=== PATIENT | female | born 1955 | race Caucasian/White ===

== ENCOUNTER 2024-09-24 02:58 | Outpatient (CLI) | payer MEDICARE, MEDICAID, SELFPAY ==
--- NOTE | 2024-09-24 07:00 | DI.MRI_ITS ---
Exam(s) MR LUMBAR SPINE WO EXAM: MR LUMBAR SPINE WO CLINICAL HISTORY: pain and previous MRI showing edema in L3,LUMBAR SPONDYLOSIS,POST LAMINECTO. TECHNIQUE: Multiplanar multisequence MRI of the Lumbar spine was performed. COMPARISON: MR MR LS SPINE WO CONTRAST from 01/04/2024 MR MR LS SPINE WO CONTRAST from 05/25/2024 FINDINGS: Bones: The last intervertebral disc space is designated the L5/S1 level for the numbering purpose of this examination. The vertebral body heights are well maintained. Alignment is satisfactory. There are endplate degenerative signal changes at multiple levels in the lumbar spine. Endplate osteophyte s are seen throughout the lumbar spine. There is again seen mild edema in the right aspect of the ba se of the L2 vertebral body. This is unchanged. There is no abnormal signal seen in the L3 vertebra l body. Cord: The conus tip is within normal limits for location. It is of normal size and signal intensity. T12-L1: No disc herniations or bulges are present. No central spinal canal or neural foraminal stenos is. L1-2: No disc herniations or bulges are present. No central spinal canal or neural foraminal stenosis . L2-3: There is a mild diffuse disc bulge and mild degenerative changes of the facets. No central spi nal canal or neural foraminal stenosis. L3-4: There is a diffuse disc bulge. There are degenerative changes of the facets. There is mild na rrowing of the central spinal canal. Mild bilateral neural foraminal narrowing is present. L4-5: No disc herniations or bulges are present. Mild degenerative changes of the facets are seen. T here is a mild diffuse disc bulge. No significant central spinal canal stenosis is seen. There is a L4 left laminectomy.There is mild bilateral neural foraminal narrowing. L5-S1: No disc herniations or bulges are present. No central spinal canal or neural foraminal stenosi s. Soft tissues: The visualized SI joints and sacrum are well maintained. There is mild fatty atrophy of the paraspinal and gluteal muscles. IMPRESSION: 1. There is no marrow edema seen in L3. 2. Multilevel degenerative changes in the lumbar spine. The findings are most marked at the L3-4 lev el, where there is both central spinal canal and neural foraminal stenosis. 3. Postsurgical changes seen in the lumbar spine. DATA REPOSITORY:
== END 2024-09-24 03:18 ==
PROVIDERS: PCP Internal Medicine; Visit Provider Anesthesiology Pain Medicine
DX: M47.816 Spondylosis without myelopathy or radiculopathy, lumbar region (principal); M96.1 Postlaminectomy syndrome, not elsewhere classified
CPT/HCPCS: 27096; 72200; 72148; J0665; J1010; Q9967

== ENCOUNTER 2024-09-24 11:35 | Outpatient (CLI) | payer MEDICARE, MEDICAID, SELFPAY ==
--- NOTE | 2024-09-24 11:30 | DI.RAD_ITS ---
Exam(s) XR PAIN CLINIC SACRIOILIAC 2V EXAM: XR PAIN CLINIC SACRIOILIAC 2V CLINICAL HISTORY: Dx: Sacroiliac Joint Dysfunction TECHNIQUE: 2D and realtime digital imaging was performed. CONTRAST MATERIAL: Refer to procedure report. COMPARISON: No exams were available for comparison FINDINGS: Fluoroscopy was provided for Dr. Flores during the performance of a right sacroiliac joint injectio n. Please refer to the procedure report for complete details. Ka,r=17.0 mGy IMPRESSION: RADIATION DOSE DELIVERED: 0.0 0.0 0
[2024-09-24 11:37] VITALS: BP 167/66; PULSE 68; RESP 20; TEMP 36.6; O2SAT 98
[2024-09-24 12:05] VITALS: PULSE 75; O2SAT 99
[2024-09-24 12:10] VITALS: PULSE 72; O2SAT 98
--- NOTE | 2024-09-24 12:16 | PDOC.PAIN_ITS ---
Date of service: 09/24/24 Time of Service: 12:18 Pain Managment Procedure Note Procedure Note Procedure Note: ?Sacroiliac Joint Steroid Injection ? Location: ? Right SI Joint? Pre-procedure Diagnosis: Sacroiliitis, not elsewhere classified - M46.1 ? Post-procedure Diagnosis:? The same as above ? Sedation:? NONE ? Medication: Depo-Medrol 40 mg, bupivacaine 0.5% 1 mL, Omnipaque 0.25 mL per joint ? Estimated blood loss:? less than 2 cc ? Surgeon:? Dru Flores MD ? COMMENT: THIS WILL BE BOTH DIAGNOSTIC AND THERAPEUTIC ? Procedure Detail:? The procedure and potential risks were explained to the patient and informed written consent was obtained. The patient was escorted to the procedure room and placed in the prone position. Pillows were utilized for proper positioning and comfort. Time out was performed in the procedure room with nursing staff confirming the patient's identity, procedure to be performed, allergies, and any blood thinning or anti-platelet medications. The patient's lumbosacral area was prepped with ChloraPrep and draped in a sterile fashion. Sterile technique was maintained throughout the procedure.? Sterile gloves were used, a face mask was worn, and new single dose vials of all medications were used with the top being swabbed with alcohol and given time to dry prior to withdrawal of medication. Lidocaine 1% was used to anesthetize the skin. With fluoroscopic guidance, a 22-gauge 5 spinal needle was advanced into the posteroinferior aspect of the Right SI joint . Confirmation of intra-articular position of the needle tip was obtained with i njection of 0.25cc of Omnipaque 240 contrast which showed appropriate spread within the joint.? Following negative aspiration, 40mg of methylprednisolone mixed with 1 mL of bupivacaine 0.5% was injected.? The needle was gently removed. ?The patient tolerated the procedure well and was transported to the recovery area for observation and discharge instructions.? Permanent images saved and recorded. Plan:? Follow up prn. PAIN PRE PROCEDURE 04/26 POST PROCEDURE 09/24 COMMENT: 80 % BETTER AFTER INJECTION. Patient can repeat as needed or consider right L5 transforaminal steroid injection if still having pain that radiates down her leg to her foot. Coding Conscious Sedation used for procedure: No CPT Codes: SI Joint Inj; incl Fluoro - 43148 ([id number] ~G) Additional Codes: Date of Service (72000) Date of service: 09/24/24
[2024-09-24] MEDS: Omnipaque 240 MG/ML 50 ML BTL IJ (12:18)
[2024-09-24] MEDS: Bupivacaine 0.5% Pres-Free 10 ML VIAL IJ (12:19)
[2024-09-24] MEDS: methylPREDNISolone ACETATE 80 MG/ML VIAL IJ (12:19)
[2024-09-24] MEDS: Nerve Block Tray 1 EACH MC (12:19)
== END 2024-09-24 11:36 | disposition home or self-care (01) ==
LOC: PC 11:36
PROVIDERS: PCP Internal Medicine; Visit Provider Anesthesiology Pain Medicine
DX: M46.1 Sacroiliitis, not elsewhere classified (principal); M54.50 Low back pain, unspecified
CPT/HCPCS: 27096; 72200; J0665; J1010; Q9967

== ENCOUNTER 2024-11-06 09:18 | Outpatient (CLI) | payer MEDICARE, MEDICAID, SELFPAY ==
--- NOTE | 2024-11-06 06:00 | DI.RAD_ITS ---
Exam(s) XR PAIN CLINIC LUMBAR SP 2V EXAM: XR PAIN CLINIC LUMBAR SP 2V CLINICAL HISTORY: DX: Lumbar Radiculopathy TECHNIQUE: 2D and realtime digital imaging was performed. CONTRAST MATERIAL: Refer to procedure report. COMPARISON: No exams were available for comparison FINDINGS: Fluoroscopy was provided for Dr. Flores during the performance of a lumbar transforaminal epidural steroid injection. Please refer to the procedure report for complete details. Ka,r=16.9 mGy IMPRESSION: RADIATION DOSE DELIVERED: 0.0 0.0 0
--- NOTE | 2024-11-06 09:11 | PDOC.PAIN_ITS ---
Date of service: 11/06/24 Time of Service: 10:08 Pain Managment Procedure Note Procedure Note Procedure Note: Lumbar Transforaminal Epidural Steroid Injection ? Location: RIGHT BILATERAL L5-S1 ? Pre-procedure Diagnosis: M54.17-Radiculopathy, lumbosacral region M54.16 Radiculopathy, lumbar region ? Post-procedure Diagnosis:? The same as above ? Sedation:? none ? Estimated blood loss:? less than 2 cc ? Surgeon:? Dru Flores MD COMMENT: Patient has right lateral L5-S1 disc protrusion in the foramen with radicular symptoms. ? Procedure Detail:?? The procedure and potential risks were explained to the patient and informed written consent was obtained. The patient was escorted to the procedure room and placed in the prone position. Pillows were utilized for proper positioning and comfort. Time out was performed in the procedure room with nursing staff confirming the patient's identity, procedure to be performed, allergies, and any blood thinning or anti-platelet medications. The patient's lo wer back was prepped with ChloraPrep and draped in a sterile fashion. Sterile gloves were used, a face mask was worn, and new single dose vials of all medications were used with the top being swabbed with alcohol and given time to dry prior to withdrawal of medication. A right-sided oblique fluoroscopic view was obtained, with visualization of L5-S1. Lidocaine 1% was used to anesthetize the skin. The tip of a 22-gauge, Quincke needle was advanced toward the 6 o'clock position of the superior pedicle at the target level.? It was advanced just under the pedicle to the neural foramen L5-S1. Correct needle placement was confirmed through review of the fluoroscopy. Next, following negative aspiration, 1cc's of Omnipaque 240 contrast was injected under live fluoroscopy which showed good flow throughout the epidural space and no evidence of vascular flow or flow into adjacent compartments. Next, following negative aspiration, 40mg Depo-Medrol and 0.5ml of 0.5% bupivacaine was injected. The needle was gently removed.? ? The patient tolerated the procedure well.? Permanent images saved and recorded. Plan:? Follow up prn PAIN: PRE PROCEDURE 04/26 POST PROCEDURE 10/25 COMMENT: Could repeat as needed. Consider adding L4 Coding Conscious Sedation used for procedure: No CPT Codes: Transforaminal Lumbar/Sacral (includes fluoro) - 22928 ([id number] ~G) Additional Codes: Date of Service (83290) Date of service: 11/06/24
[2024-11-06 09:37] VITALS: BP 133/69; PULSE 53; RESP 18; TEMP 36.1; O2SAT 97
[2024-11-06 10:05] VITALS: PULSE 96; O2SAT 98
[2024-11-06] MEDS: Nerve Block Tray 1 EACH MC (10:05)
[2024-11-06] MEDS: Omnipaque 240 MG/ML 50 ML BTL IJ (10:05)
[2024-11-06] MEDS: Bupivacaine 0.5% Pres-Free 10 ML VIAL IJ (10:06)
[2024-11-06] MEDS: methylPREDNISolone ACETATE 40 MG/ML VIAL IJ (10:06)
== END 2024-11-06 09:19 | disposition home or self-care (01) ==
PROVIDERS: PCP Internal Medicine; Visit Provider Anesthesiology Pain Medicine
DX: M54.17 Radiculopathy, lumbosacral region (principal); M54.16 Radiculopathy, lumbar region; M54.50 Low back pain, unspecified
CPT/HCPCS: 64483; 72100; J0665; J1010; Q9967

== ENCOUNTER 2025-02-13 13:36 | Outpatient (CLI) | payer MEDICARE, MEDICAID, SELFPAY ==
[2025-02-13] VITALS (8 sets, daily range): BP systolic 117–154; BP diastolic 48–117; PULSE 63–72; RESP 15–46; TEMP 36.4; O2SAT 94–97
--- NOTE | 2025-02-13 06:00 | DI.RAD_ITS ---
Exam(s) XR PAIN CLINIC LUMBAR SP 2V EXAM: XR PAIN CLINIC LUMBAR SP 2V CLINICAL HISTORY: Dx: Lumbar Spondylosis. TECHNIQUE: Fluoroscopy was provided for the referring physician for guidance with performing pain clinic injection procedure. COMPARISON: No exams were available for comparison FINDINGS: Please see procedure note for details. Fluoro time: 56.6 seconds RADIATION DOSE DELIVERED: dillan Childress=35.4 mGy
--- NOTE | 2025-02-13 15:13 | PDOC.PAIN ---
Date of service: 02/13/25 Time of Service: 15:13 Pain Managment Procedure Note Procedure Note Procedure Note: PROCEDURE NOTE Bilateral Lumbar Medial Branch Blocks Date of Service: February 13, 2025 Patient: Marilyn Ocasio Provider: Lester Herrera DO, MPH Marilyn Ocasio has been [facility] for lumbar medial branch blocks. Pre-operative diagnosis: Lumbar Spondylosis without Myelopathy ICD-10 M47.816 Post-operative diagnosis: Same Pre-procedure pain: VAS= 7/10 COMMENTS: We did have her guardian verbally co-sign her consent. I did previously evaluate her in the office. Her house rn was present for the consent process. We had a female nurse and a female x-ray tech in the room in an attempt to make the patient more comfortable. Germain was interviewed and the medical records were reviewed. There were no medical, pharmacologic, radiographic or other structural contraindications to attempting fluoroscopically guided local anesthetic lumbar medial branch blocks. Risks and potential side effects were discussed. I also discussed the potential benefit(s) of the procedure with Marilyn, and voiced concerns were addressed. After Marilyn was completely informed about the procedure, the printed consent form was signed. A standard time-out procedure was performed. Marilyn was placed in the prone position on the fluoroscopy table. Automated blood pressure cuff and pulse oximeter were applied. The skin entry points for approaching the anatomic target points of the segmental medial branches of bilateral L3,L4,L5 were identified with fluoroscopy and marked. The skin at the target site area was thoroughly prepared with Chlorhexadine. The skin was then draped. Next, a 25 gauge 3.5 spinal needle was placed under fluoroscopic guidance down on to the target point (the articular pillar) for each respective segmental medial branch. Position was confirmed in A/P and lateral views. Aspiration revealed no blood or clear fluid. Next, 0.25ml of omnipaque 240 was injected at each level. No contrast following a vascular or neural pattern was visualized under continuous fluoroscopy. Next, 0.25 ml of preservative-free 0.5% bupivicaine was injected at each level. There was no unusual discomfort expressed by Marilyn. The needles were withdrawn without difficulty. (49 mls of Omnipaque was wasted) Marilyn was observed and was without hemodynamic, neurologic, or allergic reactions.? Fluoroscopic images were digitally archived. Provacative testing using the Modified Blake's facet loading test- Left side Right Side Directly before the block VAS (0-10) = 7/10 VAS (0-10) = 7/10 Five minutes after the block VAS (0-10) = 1/10 VAS (0-10) = 1/10 Percentage relief obtained with this diagnostic block 90% 90% Any improved physical functioning directly after the blocks? Able to move her back with ease. Follow up plans and appointments were discussed with Marilyn. Marilyn was instructed to keep careful note of how the usual pain was modified by these injections. Specifically, to keep a pain diary for the next 4 hours using a numeric pain scale of 0-10 and report these results. Post procedure instruction was given as documented in the nursing documentation and having met discharge criteria, the patient was [facility]. Based on the medial branches blocked today, if they patient has adequate relief and we are able to proceed to radiofrequency ablation, the treatment should result in the denervation of the bilateral L4-L5 and L5-S1 facet joints. We would expect to denervate a total of 4 facets during the radiofrequency ablation. COMMENTS: No apparent complications. Post-procedure pain: VAS= 1/10 Marilyn will call back with 0-4 hour post-procedure pain scores. I personally performed the entire procedure. LESTER HERRERA DO, MPH ABPM&R-subspecialty board certification in Pain Medicine [facility] Coding Conscious Sedation used for procedure: No CPT Codes: LMBB (includes Fluoro) Lumbar/Sacral, 2nd lvl - 33953 ([id number] ~G) LMBB (includes Fluoro) Lumbar/Sacral, single lvl *BILATERAL* - [id number] ([id number]~G5) Additional Codes: Date of Service (99407) Date of service: 02/13/25 Diagnoses: Lumbosacral spondylosis without myelopathy
[2025-02-13] MEDS: Nerve Block Tray 1 EACH MC (15:23)
[2025-02-13] MEDS: Omnipaque 240 MG/ML 50 ML BTL IJ (15:23)
[2025-02-13] MEDS: Bupivacaine 0.5% Pres-Free 10 ML VIAL IJ (15:24)
== END 2025-02-13 13:37 | disposition home or self-care (01) ==
LOC: PC 13:36
PROVIDERS: PCP Internal Medicine; Visit Provider Preventive Medicine Occupational Medicine
DX: M54.50 Low back pain, unspecified (principal); M47.816 Spondylosis without myelopathy or radiculopathy, lumbar region
CPT/HCPCS: 64493; 64494; 72100; J0665; Q9967

== ENCOUNTER → 2025-06-17 14:28 | Outpatient (BNVA) | payer MEDICARE, MEDICAID, SELFPAY | PROVIDERS: PCP Internal Medicine; Referring Provider Internal Medicine; Visit Provider Student in an Organized Health Care Education/Training Program | DX: M54.59 Other low back pain (principal); M70.61 Trochanteric bursitis, right hip; M48.062 Spinal stenosis, lumbar region with neurogenic claudication | CPT/HCPCS: 99204; 20610; J1010 ==